=== PATIENT | female | born 1950 | race Caucasian/White ===

== ENCOUNTER → 2023-12-07 11:43 | Outpatient (REF) | payer MEDICARE, OTHER, SELFPAY ==
[2023-12-07 15:33] LABS: % Basophils 0.7 % (0-2); % Eosinophils 3.2 % (0-6); % Immature Granulocytes 0.2 % (0-0.5); % Monocytes 9.2 % (1.7-9.3); % Neutrophils 61.7 % (42.2-75.2); Absolute Eosinophils 0.2 10^3/uL (0-0.7); Absolute Lymphocytes 1.5 10^3/uL (1.2-3.4); Absolute Monocytes 0.6 10^3/uL (0.1-0.6); Absolute Neutrophils 3.7 10^3/uL (1.4-6.5); Hematocrit 37.2 % (37.0-47.0); Hemoglobin 12.8 g/dL (12.0-16.0); Mean Corp Hgb Conc. 34.4 g/dL (33.0-37.0); Mean Corpuscular Hgb 30.5 pg (27.0-31.0); Mean Corpuscular Volume 88.6 fL (81.0-99.0); Mean Platelet Volume 9.3 fL (7.4-10.4); Nucleated Red Blood Cells % 0 %; Platelet Count 292 10^3/uL (130-400); Red Cell Dist. Width 13.5 % (11.5-14.5)
[2023-12-07 15:42] LABS: ALT (SGPT) 16 U/L (0-35); AST (SGOT) 24 U/L (14-36); Albumin 4.2 g/dl (3.5-5.0); Alkaline Phosphatase 73 U/L (38-126); Blood Urea Nitrogen 13 mg/dl (7-17); Calcium 9.4 mg/dl (8.4-10.2); Carbon Dioxide 27 mmol/L (22-30); Chloride 99 mmol/L (98-107); Glucose 93 mg/dl (70-99); Potassium 4.1 mmol/L (3.5-5.1); Sodium 132 mmol/L (135-145); Total Bilirubin 0.5 mg/dl (0.2-1.3); Total Cholesterol 211 mg/dl (50-199); Total Protein 6.6 g/dl (6.3-8.2); Triglyceride 92 mg/dl (10-149); Very Low Density Lipoprotein 18 mg/dl (0-30); eGFR > 60.00
[2023-12-07 15:58] LABS: HDL Cholesterol 138 mg/dl; LDL Cholesterol, Calculated 55 mg/dl
[2023-12-07 15:59] LABS: Vitamin D, 25-OH*** 44.1 ng/mL (30-80)
[2023-12-07 16:49] LABS: Folate 7.4 ng/ml (2.76-20); Vitamin B12 624 pg/ml (239-931)
== END ==
LOC: HWRAD 11:43
PROVIDERS: ATTENDING PHYSICIAN Family Medicine
DX: M17.11 Unilateral primary osteoarthritis, right knee (principal); E66.01 Morbid (severe) obesity due to excess calories; Z68.35 Body mass index [BMI] 35.0-35.9, adult; E78.00 Pure hypercholesterolemia, unspecified; R73.03 Prediabetes; R60.0 Localized edema; K90.9 Intestinal malabsorption, unspecified
CPT/HCPCS: 36415; 73562; 80053; 80061; 82306; 82607; 82746; 84270; 84402; 84403; 85025

== ENCOUNTER → 2024-01-11 12:46 | Outpatient (REF) | payer MEDICARE, OTHER, SELFPAY ==
[2024-01-11 13:48] LABS: TSH Reflex To Free T4 1.95 uIU/ml (0.47-4.68)
== END ==
LOC: REG 12:46
PROVIDERS: ATTENDING PHYSICIAN Family Medicine
DX: M17.11 Unilateral primary osteoarthritis, right knee (principal); E66.01 Morbid (severe) obesity due to excess calories; Z68.35 Body mass index [BMI] 35.0-35.9, adult; E78.00 Pure hypercholesterolemia, unspecified; R73.03 Prediabetes; R60.0 Localized edema; K90.9 Intestinal malabsorption, unspecified
CPT/HCPCS: 36415; 84443

== ENCOUNTER → 2024-02-04 10:56 | Outpatient (REF) | payer MEDICARE, OTHER, SELFPAY | LOC: WDC 10:56 | PROVIDERS: ATTENDING PHYSICIAN Family Medicine | DX: Z12.31 Encounter for screening mammogram for malignant neoplasm of breast (principal) | CPT/HCPCS: 77063; 77067 ==

== ENCOUNTER → 2024-03-05 12:34 | Outpatient (REF) | payer MEDICARE, OTHER, SELFPAY ==
[2024-03-05 14:14] LABS: FSH 37.1 mIU/ml
[2024-03-05 14:30] LABS: Estradiol 27.9 pg/ml
== END ==
LOC: REG 12:34
PROVIDERS: FAMILY PHYSICIAN Family Medicine
DX: R53.83 Other fatigue (principal); R68.82 Decreased libido; R53.82 Chronic fatigue, unspecified; N95.9 Unspecified menopausal and perimenopausal disorder; G23.2 Striatonigral degeneration; Z79.890 Hormone replacement therapy
CPT/HCPCS: 36415; 82670; 83001; 84270; 84402; 84403

== ENCOUNTER → 2024-05-19 10:28 | Outpatient (REF) | payer MEDICARE, OTHER, SELFPAY ==
[2024-05-19 13:01] LABS: ALT (SGPT) 18 U/L (0-35); AST (SGOT) 22 U/L (14-36); Alkaline Phosphatase 76 U/L (38-126); Blood Urea Nitrogen 12 mg/dl (7-17); Calcium 9.4 mg/dl (8.4-10.2); Carbon Dioxide 28 mmol/L (22-30); Chloride 96 mmol/L (98-107); Glucose 94 mg/dl (70-99); Potassium 4.3 mmol/L (3.5-5.1); Sodium 131 mmol/L (135-145); Total Bilirubin 0.5 mg/dl (0.2-1.3); Total Protein 6.2 g/dl (6.3-8.2); eGFR > 60.00
== END ==
LOC: HWLAB 10:28
PROVIDERS: ATTENDING PHYSICIAN Internal Medicine Rheumatology; FAMILY PHYSICIAN Family Medicine
DX: M81.0 Age-related osteoporosis without current pathological fracture (principal)
CPT/HCPCS: 36415; 80053

== ENCOUNTER → 2024-08-01 15:36 | Outpatient (REF) | payer MEDICARE, OTHER, SELFPAY | LOC: HWRAD 15:36 | PROVIDERS: ATTENDING PHYSICIAN Specialist; FAMILY PHYSICIAN Family Medicine | DX: M54.12 Radiculopathy, cervical region (principal) | CPT/HCPCS: 72050 ==

== ENCOUNTER → 2024-09-23 09:02 | Outpatient (REF) | payer MEDICARE, OTHER, SELFPAY ==
[2024-09-23 11:15] LABS: % Basophils 0.4 % (0-2); % Eosinophils 2.6 % (0-6); % Immature Granulocytes 0.3 % (0-0.5); % Lymphocytes 21.3 % (20.5-51.1); % Monocytes 7.6 % (1.7-9.3); % Neutrophils 67.8 % (42.2-75.2); Absolute Eosinophils 0.2 10^3/uL (0-0.7); Absolute Lymphocytes 1.5 10^3/uL (1.2-3.4); Absolute Monocytes 0.5 10^3/uL (0.1-0.6); Absolute Neutrophils 4.7 10^3/uL (1.4-6.5); Hematocrit 35.5 % (37.0-47.0); Mean Corp Hgb Conc. 33.8 g/dL (33.0-37.0); Mean Corpuscular Hgb 30.7 pg (27.0-31.0); Mean Corpuscular Volume 90.8 fL (81.0-99.0); Mean Platelet Volume 9.2 fL (7.4-10.4); Nucleated Red Blood Cells % 0 %; Platelet Count 283 10^3/uL (130-400); Red Blood Cell Count 3.91 10^6/uL (4.20-5.40); Red Cell Dist. Width 13.6 % (11.5-14.5); White Blood Cell Count 6.9 10^3/uL (4.8-10.8)
[2024-09-23 11:26] LABS: ALT (SGPT) 15 U/L (0-35); AST (SGOT) 22 U/L (14-36); Albumin 4.3 g/dl (3.5-5.0); Alkaline Phosphatase 67 U/L (38-126); Blood Urea Nitrogen 14 mg/dl (7-17); Carbon Dioxide 28 mmol/L (22-30); Chloride 97 mmol/L (98-107); Glucose 93 mg/dl (70-99); HDL Cholesterol 97 mg/dl; Potassium 4.1 mmol/L (3.5-5.1); Sodium 132 mmol/L (135-145); Total Bilirubin 0.5 mg/dl (0.2-1.3); Total Protein 6.2 g/dl (6.3-8.2); Triglyceride 81 mg/dl (10-149); Very Low Density Lipoprotein 16 mg/dl (0-30); eGFR > 60.00
[2024-09-23 11:32] LABS: Osmolality Urine 543 mOsm/kg (300-900)
[2024-09-23 11:38] LABS: Vitamin D, 25-OH*** 59.1 ng/mL (30-80)
[2024-09-23 11:59] LABS: LDL Cholesterol, Calculated 36 mg/dl; Total Cholesterol 149 mg/dl (50-199)
[2024-09-23 12:03] LABS: Urine Protein 11 mg/dl (0-12); Urine Sodium 125 mmol/L (30-90)
[2024-09-24 14:44] LABS: Intact PTH 42.9 pg/ml (13.6-85.8)
== END ==
LOC: HWLAB 09:02
PROVIDERS: ATTENDING PHYSICIAN Internal Medicine Nephrology; FAMILY PHYSICIAN Family Medicine
DX: R80.9 Proteinuria, unspecified (principal); R31.9 Hematuria, unspecified; E55.9 Vitamin D deficiency, unspecified; E78.1 Pure hyperglyceridemia
CPT/HCPCS: 36415; 80053; 80061; 82306; 82570; 83935; 83970; 84156; 84300; 85025

== ENCOUNTER → 2024-11-18 09:44 | Outpatient (REF) | payer MEDICARE, OTHER, SELFPAY ==
[2024-11-18 13:16] LABS: ALT (SGPT) 18 U/L (0-35); AST (SGOT) 23 U/L (14-36); Albumin 4.4 g/dl (3.5-5.0); Alkaline Phosphatase 68 U/L (38-126); Blood Urea Nitrogen 11 mg/dl (7-17); Calcium 9.3 mg/dl (8.4-10.2); Carbon Dioxide 26 mmol/L (22-30); Chloride 102 mmol/L (98-107); Glucose 95 mg/dl (70-99); Potassium 4.9 mmol/L (3.5-5.1); Sodium 136 mmol/L (135-145); Total Bilirubin 0.5 mg/dl (0.2-1.3); Total Protein 6.5 g/dl (6.3-8.2); eGFR > 60.00
== END ==
LOC: HWLAB 09:44
PROVIDERS: ATTENDING PHYSICIAN Internal Medicine Rheumatology; FAMILY PHYSICIAN Family Medicine
DX: M81.0 Age-related osteoporosis without current pathological fracture (principal)
CPT/HCPCS: 36415; 80053

== ENCOUNTER 2024-11-20 18:14 | Emergency (ER) | payer MEDICARE, OTHER, SELFPAY ==
[2024-11-20 18:35] LABS: % Basophils 0.3 % (0-2); % Eosinophils 0.5 % (0-6); % Immature Granulocytes 0.3 % (0-0.5); % Lymphocytes 19.2 % (20.5-51.1); % Monocytes 8.4 % (1.7-9.3); % Neutrophils 71.3 % (42.2-75.2); Absolute Eosinophils 0.1 10^3/uL (0-0.7); Absolute Lymphocytes 2.1 10^3/uL (1.2-3.4); Absolute Monocytes 0.9 10^3/uL (0.1-0.6); Absolute Neutrophils 7.9 10^3/uL (1.4-6.5); Hematocrit 34.2 % (37.0-47.0); Hemoglobin 12.2 g/dL (12.0-16.0); Mean Corp Hgb Conc. 35.7 g/dL (33.0-37.0); Mean Platelet Volume 8.6 fL (7.4-10.4); Nucleated Red Blood Cells % 0 %; Platelet Count 302 10^3/uL (130-400); Red Blood Cell Count 3.93 10^6/uL (4.20-5.40); Red Cell Dist. Width 13.7 % (11.5-14.5); White Blood Cell Count 11.1 10^3/uL (4.8-10.8)
[2024-11-20 18:52] LABS: ALT (SGPT) 18 U/L (0-35); AST (SGOT) 21 U/L (14-36); Albumin 4.1 g/dl (3.5-5.0); Alkaline Phosphatase 64 U/L (38-126); Blood Urea Nitrogen 17 mg/dl (7-17); Calcium 9.9 mg/dl (8.4-10.2); Carbon Dioxide 28 mmol/L (22-30); Chloride 100 mmol/L (98-107); Glucose 109 mg/dl (70-99); Sodium 134 mmol/L (135-145); Total Bilirubin 0.3 mg/dl (0.2-1.3); Total Protein 6.5 g/dl (6.3-8.2); eGFR > 60.00
[2024-11-20 18:59] LABS: Troponin I < 0.012 ng/ml
--- NOTE | 2024-11-20 20:15 | ED.GENMED ---
History of Present Illness
General
Chief Complaint: Jaw Pain
Source: patient and family
Time Seen by Provider: 11/20/24 19:59
History of Present Illness
History of Present Illness:
74-year-old female with past medical history of cerebral aneurysm, 2 previous TIAs, osteopenia presenting to the emergency department for evaluation after around 640 this morning she awoke and developed some left-sided jaw pain, upper abdominal
pain, nausea. Symptoms seem to subside for about 40 minutes or so and then started again with this time the patient feeling a cold sweat and lightheaded, around 9 AM started to feel vertiginous with the symptoms all resolving shortly thereafter.
Patient states for the remainder of the day she felt a little bit out of it and states at present time feels back to her usual state of health. Patient has a good friend who is a former ER nurse and the patient was discussing symptoms with her
friend who recommended patient come to the ER to have further evaluation performed. Patient notes that she has a loop recorder in place as part of her workup for the brain aneurysm after they thought maybe patient could be having A-fib but patient
notes she normally does not follow with cardiology regularly. Patient does note yesterday she received a injection of Prolia for her osteopenia as well as a cortisone injection and thought these 2 injections were related to her symptoms. No other
concerns presently. Social history and family history otherwise noncontributory. Of note, patient did recently travel to [place] and returned home 2 weeks ago.
Past History
Past History
ED Past Medical History: Asthma, Other (Brain aneurysm ) and Other (Gastritis, neuropathy, connective tissue disease, IgA nephropathy, herniated discs )
ED Past Surgical History: Brain, Cholecystectomy and Gynecological
Social History
Tobacco: Non-smoker
Alcohol: None
Drug: None
Personal:
Living: with family
Employment: Not employed
Family History
Family History: CAD
Review of Systems
Review of Systems
All Other Systems: ROS reviewed and negative except as documented in HPI and ROS
Phy Exam
Physical Exam
Physical Exam:
GENERAL: Alert , in no apparent distress
EYE: clear conjunctiva b/l
HEAD: NCAT
ENT: o/p clr, mmm.
CARDIAC: Regular rate and rhythm, no murmur.
LUNGS: Clear breath sounds bilaterally, no acute respiratory distress, no wheezes/rales/rhonchi
ABDOMEN: Soft, without focal tenderness, no r/g, no cvat
NEUROLOGICAL: Alert and oriented
SKIN: Warm and dry, skin intact.
MUSCULOSKELETAL: No edema, well perfused.
PSYCH: Normal and appropriate interaction.
Scores
Heart Failure Risk
Heart Failure Risk Score: Not Applicable
Heart Score for Chest Pain Patients
STEMI patient?: No
History: Slightly or Non-Suspicious
ECG: Normal
Age: >/= 65 years
Risk Factors: No Risk Factors
Troponin: </= Normal Limit
Heart Score for Chest Pain Patients: 2
Heart Score Risk: 2.5% MACE over next 6 weeks
Withdrawal Assessment of Alcohol
Withdrawal Assessment Completed?: Not applicable
Course
Orders/Labs/Results
Orders:
Orders
11/20/24 18:15
Electrocardiogram (*1) Urgent
Reason for Study: Other
Other Reason for Exam: jaw pain
11/20/24 18:16
EKG- Treatment ONCE
11/20/24 18:26
Complete Blood Count/With Diff Urgent
Comprehensive Metabolic Panel Urgent
Troponin I Urgent
11/20/24 20:15
CR Chest - 2 Views Urgent
Comment:
Reason For Exam: chest pain/palpitations
11/20/24 21:02
Troponin I Urgent
Abnormal Lab Results
11/20/24
18:26
WBC 11.1 H 10^3/uL
(4.8-10.8)
RBC 3.93 L 10^6/uL
(4.20-5.40)
Hct 34.2 L %
(37.0-47.0)
Absolute Neuts (auto) 7.9 H 10^3/uL
(1.4-6.5)
Absolute Monos (auto) 0.9 H 10^3/uL
(0.1-0.6)
Lymphocytes % 19.2 L %
(20.5-51.1)
Sodium 134 L mmol/L
(135-145)
Creatinine 0.5 L mg/dL
(0.6-1.0)
Glucose 109 H mg/dl
(70-99)
11/20/24 18:26
11/20/24 18:26
Vital Signs
Initial and Last Documented VS:
Initial Vital Signs
Pulse Resp BP
78 15 138/66
11/20/24 20:20 11/20/24 20:20 11/20/24 20:20
Last Documented Vital Signs
Temp Pulse Resp BP
98.1 F 73 15 138/66
11/20/24 20:22 11/20/24 20:30 11/20/24 20:20 11/20/24 20:20
MDM/Problems Addressed
Differential Diagnosis Includes:
Angina, PE, cardiac dysrhythmia, GERD/gastritis aneurysm, infectious etiology
MDM/Problems Addressed:
74-year-old female presenting to the ER for evaluation of left-sided jaw pain, vertigo, abdominal pain, palpitations that all started around 6:40 AM, resolved from 9 AM onward. Asymptomatic presently. Patient currently hemodynamically stable and
in no acute distress. Workup was initiated in triage which is reassuring without any significant abnormalities including a negative troponin. EKG nonischemic. Will repeat troponin and obtain chest x-ray. At this time unclear etiology for
patient's symptoms but given her history certainly patient needs further cardiac evaluation. She does follow with Dr. Soliz in the past and will refer to the chest pain hotline to help expedite an outpatient follow-up. Reassessment following
Chronic conditions affecting care: Neurological disorder
*Pulse Oximetry
Patient hypoxic: no
*EKG
Heart Rate: 75
Rate: normal
Rhythm: sinus
[place]: normal axis
Ischemia: no ischemia
*[employer] Interpretation
Rate: normal
Rhythm: sinus
*Critical Care Note
Total Time (30-74mins, 75-104mins- exclusive of procedures): Not Applicable
Patient Management
Social determinants of health affecting care: Living situation and Strong social support
Escalation/DeEscalation of care consider admission/obs:
Repeat troponin negative. Patient remains chest pain-free. Hemodynamically stable. Patient feels comfortable being discharged home. She was referred to the chest pain hotline. Aware of return precautions to the emergency department.
ED Attending Note
-
Portions of this chart may have been created with voice recognition software.� Occasional wrong word or��sound alike� substitutions may have occurred due to the inherent limitations of voice recognition software.
Discharge Plan
Departure
Patient Disposition: Home (Routine Discharge)
Date of Disposition: 11/20/24
Time of Disposition: 21:39
Patient with high blood pressure during this ER visit?: No
Discharge Problem:
Jaw pain, Palpitations
Instructions: Chest pain - Discharge instructions, Chest Pain DCA Follow Up
Prescriptions:
No Action
Aspirin Low Dose EC
81 mg PO DAILY
clopidogrel 75 MG tablet
75 mg PO DAILY
hydrocodone-acetaminophen [Vicodin HP] 10 MG/660 MG tablet
1 tab PO Q6HPRN PRN (Reason: pain)
irbesartan [Avapro] 75 MG tablet
150 mg PO QPM
montelukast 10 MG tablet
10 mg PO QPM
hydroxychloroquine [Plaquenil] 200 MG tablet
200 mg PO DAILY
zolpidem 10 MG tablet
2.5 mg PO HS
desvenlafaxine succinate [Pristiq] 100 MG tablet extended release 24 hr
50 mg PO DAILY
simvastatin 10 MG tablet
10 mg PO QPM
aluminum hydrox-magnesium carb [Gaviscon Extra Strength] 1 EACH tablet,chewable
2 ea PO PRN PRN (Reason: abd. pain)
albuterol sulfate 1 PUFF HFA aerosol inhaler
1 puff inhalation R Q6HPRN PRN (Reason: asthma)
omega-3 acid ethyl esters [Lovaza] 1 G capsule
1 g PO BID
Tylenol
2 tab PO PRN PRN (Reason: jiang)
famotidine 20 MG tablet
20 mg PO DAILY
Pantoprazole
1 tab PO DAILY
Patient Comments:
pt unsure of dose
penicillin V potassium 500 MG tablet
500 mg PO Q6
fexofenadine [Irish Allergy] 60 MG tablet
60 mg PO
Referrals:
Omar Coelho DO [Family Provider] -
Interventions
Interventions:
*Risk Screen - Suicide Last Done: 11/20/24 18:16
*General Assessment Last Done: 11/20/24 18:16
*Neglect/Abuse Screening Last Done: 11/20/24 18:16
*ED- Fall Risk Assessment Last Done: 11/20/24 19:58
*ED COVID-19 Vaccine History Last Done: 11/20/24 18:16
ED-EENT Assessment Last Done: 11/20/24 20:18
ED- Cardiac Assessment Last Done: 11/20/24 20:18
Discharge Date and Time
Print Language: SCOTTISH
[2024-11-20 20:20] VITALS: BP 138/66
[2024-11-20 21:37] LABS: Troponin I < 0.012 ng/ml
== END 2024-11-20 22:03 | disposition home or self-care (01) ==
LOC: EMR 18:14
PROVIDERS: Physician Assistant Medical; Student in an Organized Health Care Education/Training Program; EMERGENCY PHYSICIAN Emergency Medicine; FAMILY PHYSICIAN Family Medicine
DX: R68.84 Jaw pain (principal); R00.2 Palpitations; J45.909 Unspecified asthma, uncomplicated; M85.80 Other specified disorders of bone density and structure, unspecified site; Z86.73 Personal history of transient ischemic attack (TIA), and cerebral infarction without residual deficits; Z86.79 Personal history of other diseases of the circulatory system; Z87.19 Personal history of other diseases of the digestive system; Z90.49 Acquired absence of other specified parts of digestive tract
CPT/HCPCS: 99285; 71046; 80053; 84484; 85025; 93005

== ENCOUNTER → 2025-02-16 14:28 | Outpatient (REF) | payer MEDICARE, OTHER, SELFPAY | LOC: WDC 14:28 | PROVIDERS: ATTENDING PHYSICIAN Registered Nurse; FAMILY PHYSICIAN Family Medicine | DX: Z12.31 Encounter for screening mammogram for malignant neoplasm of breast (principal) | CPT/HCPCS: 77063; 77067 ==

== ENCOUNTER → 2025-05-06 10:32 | Outpatient (REF) | payer MEDICARE, OTHER, SELFPAY ==
[2025-05-06 11:27] LABS: Urine Character Clear (Clear)
[2025-05-06 11:30] LABS: Hematocrit 37.9 % (37.0-47.0); Hemoglobin 13.0 g/dL (12.0-16.0); Mean Corp Hgb Conc. 34.3 g/dL (33.0-37.0); Mean Corpuscular Volume 89.6 fL (81.0-99.0); Nucleated Red Blood Cells % 0 %; Platelet Count 297 10^3/uL (130-400); Red Cell Dist. Width 13.7 % (11.5-14.5)
[2025-05-06 12:15] LABS: Urine Squamous Cell 26-30 /LPF (Few); Urine Urothelial Cell 0-2 /LPF (FEW)
[2025-05-06 12:16] LABS: Urine White Cell 0-2 /HPF (0-5)
[2025-05-06 13:21] LABS: ALT (SGPT) 22 U/L (0-35); AST (SGOT) 24 U/L (14-36); Albumin 4.5 g/dl (3.5-5.0); Alkaline Phosphatase 63 U/L (38-126); Blood Urea Nitrogen 15 mg/dl (7-17); Calcium 9.2 mg/dl (8.4-10.2); Carbon Dioxide 29 mmol/L (22-30); Chloride 96 mmol/L (98-107); Glucose 80 mg/dl (70-99); Potassium 4.5 mmol/L (3.5-5.1); Sodium 130 mmol/L (135-145); Total Protein 6.8 g/dl (6.3-8.2); Very Low Density Lipoprotein 9 mg/dl (0-30); eGFR > 60.00
[2025-05-06 13:25] LABS: Glycohemoglobin (HgbA1c) 5.3 % (4.0-5.6)
[2025-05-06 13:39] LABS: HDL Cholesterol 127 mg/dl; LDL Cholesterol, Calculated 38 mg/dl
== END ==
LOC: REG 10:32
PROVIDERS: ATTENDING PHYSICIAN Family Medicine
DX: E78.00 Pure hypercholesterolemia, unspecified (principal); R73.9 Hyperglycemia, unspecified
CPT/HCPCS: 36415; 80053; 80061; 81003; 81015; 83036; 84443; 85025

== ENCOUNTER 2025-05-29 09:33 | Emergency (ER) | payer MEDICARE, OTHER, SELFPAY ==
[2025-05-29 09:36] VITALS: BP 108/73
[2025-05-29 10:03] VITALS: BP 90/54
--- NOTE | 2025-05-29 10:23 | ED.GENMED ---
History of Present Illness
<Ezekiel Alfaro PA-C - Last Filed: 05/29/25 15:31>
General
Chief Complaint: Chest Pain
Source: patient
Time Seen by Provider: 05/29/25 10:23
History of Present Illness
History of Present Illness:
75-year-old female with past medical history of cerebral aneurysm status post 3 stents, hypertension well-controlled with medication and IgA nephropathy presenting to the emergency department for evaluation after she developed palpitations with some
chest discomfort last night around 8 PM, symptoms lasted for approximately 3 hours, heart rate going as high as around the 160 bpm, intermittently going bradycardic as well. Patient asymptomatic presently. She denies any history of similar. She
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 She denies any alcohol use or caffeine use. Denies any use of anticoagulants currently. No other concerns presently.
Past History
<Thom Myrick DO - Last Filed: >
Past History
ED Past Medical History: Asthma, Other (Brain aneurysm ) and Other (Gastritis, neuropathy, connective tissue disease, IgA nephropathy, herniated discs )
ED Past Surgical History: Brain, Cholecystectomy and Gynecological
Social History
Tobacco: Non-smoker
Alcohol: None
Drug: None
Personal:
Living: with family
Employment: Not employed
Family History
Family History: CAD
Review of Systems
<Ezekiel Alfaro PA-C - Last Filed: 05/29/25 15:31>
Review of Systems
All Other Systems: ROS reviewed and negative except as documented in HPI and ROS
Phy Exam
<Ezekiel Alfaro PA-C - Last Filed: 05/29/25 15:31>
Physical Exam
Physical Exam:
GENERAL: Alert , in no apparent distress
HEAD: Normocephalic atraumatic
EYE: conjunctiva clear
NECK: Supple
ENT: o/p clr, mmm.
CARDIAC: Regular rate and rhythm
LUNGS: Clear breath sounds bilaterally, no acute respiratory distress, no wheezes/rales/rhonchi
NEUROLOGICAL: Alert and oriented
SKIN: Warm and dry, skin intact.
MUSCULOSKELETAL: well perfused.
PSYCH: Normal and appropriate interaction.
Scores
<Ezekiel Alfaro PA-C - Last Filed: 05/29/25 15:31>
Heart Failure Risk
Heart Failure Risk Score: Not Applicable
Heart Score for Chest Pain Patients
STEMI patient?: Not applicable
Withdrawal Assessment of Alcohol
Withdrawal Assessment Completed?: Not applicable
Course
<Ezekiel Alfaro PA-C - Last Filed: 05/29/25 15:31>
Orders/Labs/Results
Orders:
Orders
05/29/25 09:35
EKG [Electrocardiogram (*1)] Urgent
Reason for Study: Chest Pain
EKG- Treatment ONCE
05/29/25 10:26
Complete Blood Count/With Diff Urgent
Comprehensive Metabolic Panel Urgent
Magnesium Urgent
TSH Urgent
Troponin I Urgent
05/29/25 12:37
Troponin I Urgent
05/29/25 12:41
Electrocardiogram (*1) Urgent
Reason for Study: Tachycardia
05/29/25 12:42
EKG- Treatment ONCE
Abnormal Lab Results
05/29/25 05/29/25
10:26 12:37
Absolute Monos (auto) 0.8 H 10^3/uL
(0.1-0.6)
Absolute Eos (auto) 0.8 H 10^3/uL
(0-0.7)
Monocytes % 10.0 H %
(1.7-9.3)
Eosinophils % 9.8 H %
(0-6)
Sodium 134 L mmol/L
(135-145)
Creatinine 0.5 L mg/dL
(0.6-1.0)
Troponin I 0.037 H* ng/ml
05/29/25 10:26
05/29/25 10:26
Vital Signs
Initial and Last Documented VS:
Initial Vital Signs
Temp Pulse Resp BP Pulse Ox
97.6 F 88 18 108/73 100
05/29/25 09:36 05/29/25 09:36 05/29/25 09:36 05/29/25 09:36 05/29/25 09:36
Last Documented Vital Signs
Temp Pulse Resp BP Pulse Ox
97.6 F 74 20 97/51 100
05/29/25 09:36 05/29/25 13:45 05/29/25 13:45 05/29/25 12:00 05/29/25 13:45
<Thom Myrick, DO - Last Filed: >
Orders/Labs/Results
Orders:
Orders
05/29/25 09:35
EKG [Electrocardiogram (*1)] Urgent
Reason for Study: Chest Pain
EKG- Treatment ONCE
05/29/25 10:26
Complete Blood Count/With Diff Urgent
Comprehensive Metabolic Panel Urgent
Magnesium Urgent
TSH Urgent
Troponin I Urgent
05/29/25 12:37
Troponin I Urgent
05/29/25 12:41
Electrocardiogram (*1) Urgent
Reason for Study: Tachycardia
05/29/25 12:42
EKG- Treatment ONCE
Abnormal Lab Results
05/29/25 05/29/25
10:26 12:37
Absolute Monos (auto) 0.8 H 10^3/uL
(0.1-0.6)
Absolute Eos (auto) 0.8 H 10^3/uL
(0-0.7)
Monocytes % 10.0 H %
(1.7-9.3)
Eosinophils % 9.8 H %
(0-6)
Sodium 134 L mmol/L
(135-145)
Creatinine 0.5 L mg/dL
(0.6-1.0)
Troponin I 0.037 H* ng/ml
05/29/25 10:26
05/29/25 10:26
Vital Signs
Initial and Last Documented VS:
Initial Vital Signs
Temp Pulse Resp BP Pulse Ox
97.6 F 88 18 108/73 100
05/29/25 09:36 05/29/25 09:36 05/29/25 09:36 05/29/25 09:36 05/29/25 09:36
Last Documented Vital Signs
Temp Pulse Resp BP Pulse Ox
97.6 F 74 20 97/51 100
05/29/25 09:36 05/29/25 13:45 05/29/25 13:45 05/29/25 12:00 05/29/25 13:45
<Ezekiel Alfaro PA-C - Last Filed: 05/29/25 15:31>
MDM/Problems Addressed
Differential Diagnosis Includes:
Afib
SVT
V-fib/Vtach
Valvular dysfunction
Thyroid disorder
Electrolyte imbalance
Less concern for ACS
MDM/Problems Addressed:
75-year-old female presented the ER for evaluation of palpitations that lasted for approximately 3 hours last night, patient concern for atrial fibrillation. She did note she attempted vagal maneuvers without any success. Symptoms resolved on
their own. Patient arrives to the ER without any other concerns, currently hemodynamically stable, EKG done in triage shows a normal sinus rhythm. During my exam patient did have a 2 to 3-second run of tachycardia which we will review this with
cardiology. I would be very hesitant to initiate the patient on a DOAC medication given her cerebral aneurysm history that she notes has bled in the past. Patient otherwise currently hemodynamically stable.
Chronic conditions affecting care: Neurological disorder
<Ezekiel Alfaro PA-C - Last Filed: 05/29/25 15:31>
*Pulse Oximetry
Patient hypoxic: no
*EKG
Heart Rate: 83
Rate: normal
Rhythm: sinus
[place]: normal axis
Ischemia: no ischemia
*[employer] Interpretation
Rate: normal
Heart Rate: 82
Rhythm: sinus
*Critical Care Note
Total Time (30-74mins, 75-104mins- exclusive of procedures): Not Applicable
<Thom Myrick DO - Last Filed: >
*Pulse Oximetry
SaO2: 100
Oxygen Mode of Delivery: Room air
<Ezekiel Alfaro PA-C - Last Filed: 05/29/25 15:31>
Patient Management
Social determinants of health affecting care: Living situation and Strong social support
Discussion with other providers: Hospitalist Program Director
Escalation/DeEscalation of care consider admission/obs:
10:55 AM: Case was reviewed with cardiology who believes that 2 to 3-second run of tachycardia was likely SVT. They would not start a DOAC medication until patient is further evaluated and confirmed with more prolonged monitoring as well as after
consultation with neurosurgical team. Patient updated on this recommendation. Awaiting labs and will keep patient on telemetry in the meantime.
1:30 PM: Patient had a repeat troponin that was slightly elevated at 0.037. She remains asymptomatic. I still suspect that her troponin is likely related to persistently elevated heart rate over the course of many hours as opposed to ischemia/ACS.
I renotified cardiology about the elevated troponin and that patient does have a wedding this evening that she would ultimately like to go to. They would be okay with the patient being discharged home with close follow-up with the chest pain
hotline. I did discuss return precautions to the emergency department with the patient including recurring palpitations, chest pain, shortness of breath or any other concerns she may have. Overall I do not feel that the symptoms are related to ACS
but did discuss with the patient that she did have this very slightly elevated troponin. Patient did express understanding and felt comfortable with this plan.
ED Attending Note
<Thom Myrick, DO - Last Filed: >
-
Portions of this chart may have been created with voice recognition software.� Occasional wrong word or��sound alike� substitutions may have occurred due to the inherent limitations of voice recognition software.
Discharge Plan
Departure
Patient Disposition: Home (Routine Discharge)
Date of Disposition: 05/29/25
Time of Disposition: 13:47
Patient with high blood pressure during this ER visit?: No
Discharge Problem:
Palpitations
Instructions: Palpitations - ED (DC), Chest Pain CBC Follow Up
Prescriptions:
No Action
Aspirin Low Dose EC
81 mg PO DAILY
clopidogrel 75 MG tablet
75 mg PO DAILY
hydrocodone-acetaminophen [Vicodin HP] 10 MG/660 MG tablet
1 tab PO Q6HPRN PRN (Reason: pain)
irbesartan [Avapro] 75 MG tablet
150 mg PO QPM
montelukast 10 MG tablet
10 mg PO QPM
hydroxychloroquine [Plaquenil] 200 MG tablet
200 mg PO DAILY
zolpidem 10 MG tablet
2.5 mg PO HS
desvenlafaxine succinate [Pristiq] 100 MG tablet extended release 24 hr
50 mg PO DAILY
simvastatin 10 MG tablet
10 mg PO QPM
aluminum hydrox-magnesium carb [Gaviscon Extra Strength] 1 EACH tablet,chewable
2 ea PO PRN PRN (Reason: abd. pain)
albuterol sulfate 1 PUFF HFA aerosol inhaler
1 puff inhalation R Q6HPRN PRN (Reason: asthma)
omega-3 acid ethyl esters [Lovaza] 1 G capsule
1 g PO BID
Tylenol
2 tab PO PRN PRN (Reason: jiang)
famotidine 20 MG tablet
20 mg PO DAILY
Pantoprazole
1 tab PO DAILY
Patient Comments:
pt unsure of dose
penicillin V potassium 500 MG tablet
500 mg PO Q6
fexofenadine [Irish Allergy] 60 MG tablet
60 mg PO
Referrals:
Star Salinas III, DO [Non-Admitting Privileges, Pediatrics]
Interventions
Interventions:
*Risk Screen - Suicide Last Done: 05/29/25 09:36
*General Assessment Last Done: 05/29/25 09:36
*Neglect/Abuse Screening Last Done: 05/29/25 10:47
*ED- Fall Risk Assessment Last Done: 05/29/25 10:48
*Nursing Disposition Last Done: 05/29/25 14:55
ED- Cardiac Assessment Last Done: 05/29/25 10:47
Discharge Date and Time
Discharge Date/Time: 05/29/25 14:56
Print Language: KOSOVAN
[2025-05-29 10:34] LABS: Hematocrit 39.2 % (37.0-47.0); Hemoglobin 13.5 g/dL (12.0-16.0); Mean Corp Hgb Conc. 34.4 g/dL (33.0-37.0); Mean Corpuscular Volume 89.3 fL (81.0-99.0); Nucleated Red Blood Cells % 0 %; Platelet Count 354 10^3/uL (130-400); Red Cell Dist. Width 13.9 % (11.5-14.5)
[2025-05-29 10:59] LABS: Troponin I 0.031 ng/ml
[2025-05-29 11:00] VITALS: BP 93/55
[2025-05-29 11:07] LABS: ALT (SGPT) 19 U/L (0-35); AST (SGOT) 22 U/L (14-36); Albumin 4.3 g/dl (3.5-5.0); Alkaline Phosphatase 66 U/L (38-126); Blood Urea Nitrogen 15 mg/dl (7-17); Calcium 9.5 mg/dl (8.4-10.2); Carbon Dioxide 28 mmol/L (22-30); Chloride 102 mmol/L (98-107); Glucose 90 mg/dl (70-99); Magnesium 2.0 mg/dl (1.6-2.3); Potassium 4.2 mmol/L (3.5-5.1); Sodium 134 mmol/L (135-145); Total Protein 6.7 g/dl (6.3-8.2); eGFR > 60.00
[2025-05-29 11:25] LABS: TSH 1.12 uIU/ml (0.47-4.68)
[2025-05-29 12:00] VITALS: BP 97/51
[2025-05-29 13:30] LABS: Troponin I 0.037 ng/ml
== END 2025-05-29 14:56 | disposition home or self-care (01) ==
LOC: EMR 09:33
PROVIDERS: Physician Assistant Medical; EMERGENCY PHYSICIAN Emergency Medicine; FAMILY PHYSICIAN Family Medicine
DX: R00.2 Palpitations (principal); R07.89 Other chest pain; I10 Essential (primary) hypertension; J45.909 Unspecified asthma, uncomplicated; Z86.79 Personal history of other diseases of the circulatory system; Z90.49 Acquired absence of other specified parts of digestive tract
CPT/HCPCS: 99284; 80053; 83735; 84443; 84484; 85025; 93005